=== PATIENT | female | born 1960 | race Caucasian/White ===

== ENCOUNTER 2019-02-07 12:04 | Emergency (ER) | payer MEDICAID, OTHER ==
[~2019-02-07] VITALS: Ht 149.9 cm; Wt 40.4 kg
[~2019-02-07 12:04] MED LIST: OMEP20EC4 PO
[2019-02-07 12:10] VITALS: BP 133/84
--- NOTE | 2019-02-07 12:12 | NUR ---
PT AMBULATED TO ER BED 08
--- NOTE | 2019-02-07 12:16 | NUR ---
58/F BIB SELF C/O LEFT LOWER DENTAL PAIN X 3 DAYS. DENIES FEVER/CHILLS. REQUESTING ABX RX. HX: DIABETES. PATIENT STATES PAIN OF 10/10 AT THIS TIME; PATIENT POSITIONED FOR COMFORT; HOB ELEVATED; BEDRAILS UP X1; BED DOWN. ER MD MADE AWARE OF PT STATUS.
--- NOTE | 2019-02-07 12:17 | NUR ---
Patient being evaluated by DR HORTA at bedside.
[2019-02-07] MEDS ORDERED: IBUPROFEN 400 MG TAB PO ONE (12:20)
[2019-02-07 12:33] VITALS: BP 110/72
--- NOTE | 2019-02-07 12:33 | NUR ---
Patient discharged with v/s stable. Written and verbal after care instructions given and explained. Patient alert, oriented and verbalized understanding of instructions. Ambulatory with steady gait. All questions addressed prior to discharge. ID band removed. Patient advised to follow up with PMD. Rx of CLINDAMYCIN & NAPROSYN given. Patient educated on indication of medication including possible reaction and side effects. Opportunity to ask questions provided and answered.
== END 2019-02-07 12:33 | disposition home or self-care (01) ==
LOC: MED 12:04
DX: K04.7 Periapical abscess without sinus (principal); E11.9 Type 2 diabetes mellitus without complications; K21.9 Gastro-esophageal reflux disease without esophagitis; Z88.0 Allergy status to penicillin; Z79.899 Other long term (current) drug therapy
CPT/HCPCS: 99283

== ENCOUNTER 2019-06-03 09:41 | Emergency (ER) | payer MEDICAID, OTHER ==
[~2019-06-03] VITALS: Ht 144.8 cm; Wt 32.7 kg
[~2019-06-03 09:41] MED LIST changes: +OMEP20EC11 PO; -OMEP20EC4 PO
[2019-06-03 09:50] VITALS: BP 112/80
--- NOTE | 2019-06-03 09:55 | NUR ---
Patient ambulated to bed 3
[2019-06-03] MEDS ORDERED: METF1000 PO (09:58)
[2019-06-03] MEDS ORDERED: GABA300C PO (09:58)
--- NOTE | 2019-06-03 10:00 | NUR ---
PPT C/O DIARRHEA FOR THE PAST 3-4 DAYS. PT DENIES ANY ABDOMINAL PAIN AND NAUSEA. PATIENT STATES PAIN OF 0/10 AT THIS TIME; VSS; PATIENT POSITIONED FOR COMFORT; HOB ELEVATED; BEDRAILS UP X1; BED DOWN. ER MD MADE AWARE OF PT STATUS.
[2019-06-03] MEDS ORDERED: LOPERAMIDE 2 MG CAP PO ONE (10:05)
[2019-06-03] MEDS ORDERED: NACL 0.9% 1,000 ML IV ONE (10:05)
[2019-06-03 10:31] LABS: BASOPHILS % (AUTO) 0.5 % (0.0-2.0); EOSINOPHILS # (AUTO) 0.1 K/uL (0-0.4); EOSINOPHILS % (AUTO) 0.7 % (0.0-4.0); HEMATOCRIT 36.8 % (36-48); HEMOGLOBIN 12.3 g/dL (12.0-16.0); LYMPHOCYTES # (AUTO) 2.3 K/uL (2.5-16.5); LYMPHOCYTES % (AUTO) 31.4 % (20.5-51.1); MEAN CORPUSCULAR HEMOGLOBIN 29 pg (27-31); MEAN CORPUSCULAR HGB CONC 33 g/dL (33-37); MEAN CORPUSCULAR VOLUME 87.7 fL (80-94); MONOCYTES # (AUTO) 0.6 K/uL (0.8-1.0); MONOCYTES % (AUTO) 8.7 % (1.7-9.3); NEUTROPHILS # (AUTO) 4.3 K/uL (1.8-7.7); NEUTROPHILS % (AUTO) 58.7 % (42.2-75.2); PLATELET COUNT (AUTO) 334 K/uL (140-450); RED CELL DISTRIBUTION WIDTH 12.7 % (11.6-13.7); WHITE BLOOD COUNT (AUTO) 7.3 K/uL (4.8-10.8)
[2019-06-03 10:37] LABS: ANION GAP 16.8 (8-16); CARBON DIOXIDE 28.4 mmol/L (21-32); CREATININE 0.8 mg/dL (0.6-1.3); POTASSIUM 3.2 mmol/L (3.5-5.1)
[2019-06-03] MEDS ORDERED: INSULIN REGULAR, HUMAN 100 UNIT/ML VIAL SUBQ ONE (10:40)
[2019-06-03] MEDS ORDERED: POTASSIUM CHLORIDE 10 MEQ TABER PO ONE (10:40)
[2019-06-03 10:42] LABS: ALBUMIN 2.7 g/dL (3.4-5.0); TOTAL BILIRUBIN 0.4 mg/dL (0.0-1.0)
[2019-06-03 11:30] VITALS: BP 131/79
--- NOTE | 2019-06-03 11:30 | NUR ---
Patient discharged with v/s stable. Written and verbal after care instructions given and explained. Patient alert, oriented and verbalized understanding of instructions. Ambulatory with steady gait. All questions addressed prior to discharge. ID band removed. Patient advised to follow up with PMD. Rx of Imodium A-D given. Patient educated on indication of medication including possible reaction and side effects. Opportunity to ask questions provided and answered.
== END 2019-06-03 11:30 | disposition home or self-care (01) ==
LOC: MED 09:41
DX: K52.9 Noninfective gastroenteritis and colitis, unspecified (principal); E87.6 Hypokalemia; E11.65 Type 2 diabetes mellitus with hyperglycemia; K21.9 Gastro-esophageal reflux disease without esophagitis; Z79.899 Other long term (current) drug therapy; Z79.84 Long term (current) use of oral hypoglycemic drugs; Z88.0 Allergy status to penicillin
CPT/HCPCS: 36415; 80053; 82948; 85025; 96360; 96372; 99283; J1815; J7030

== ENCOUNTER 2020-06-12 21:20 | Emergency (ER) | payer OTHER ==
[~2020-06-12] VITALS: Ht 149.9 cm; Wt 37.0 kg
[~2020-06-12 21:20] MED LIST changes: +GABA300C PO; -OMEP20EC11 PO
[2020-06-12 21:24] VITALS: BP 144/91
[2020-06-12] MEDS ORDERED: ONDANSETRON 4 MG ODT PO ONE (22:05)
[2020-06-12 23:41] VITALS: BP 124/68
== END 2020-06-12 23:43 | disposition home or self-care (01) ==
LOC: MED 21:20
DX: R11.2 Nausea with vomiting, unspecified (principal); T36.8X5A Adverse effect of other systemic antibiotics, initial encounter; E11.9 Type 2 diabetes mellitus without complications; Z98.890 Other specified postprocedural states; Y92.89 Other specified places as the place of occurrence of the external cause
CPT/HCPCS: 82948; 99283; Q0162

== ENCOUNTER 2021-03-30 00:22 | Observation (INO) | payer OTHER, SELFPAY ==
[~2021-03-30] VITALS: Ht 149.9 cm; Wt 40.4 kg
[~2021-03-30 00:22] MED LIST changes: +CALC667C3 PO; +FERR240T12 PO; -GABA300C PO; +MAGN100T13 PO; +POTA10TE30 PO
[2021-03-30 00:45] VITALS: BP 123/72
[2021-03-30] MEDS ORDERED: ONDANSETRON 4 MG/2 ML VIAL IVP ONE (00:50)
[2021-03-30 01:28] LABS: BASOPHILS % (AUTO) 0.7 % (0.0-2.0); EOSINOPHILS % (AUTO) 0.7 % (0.0-4.0); HEMATOCRIT 38.7 % (36-48); HEMOGLOBIN 12.2 g/dL (12.0-16.0); LYMPHOCYTES # (AUTO) 0.9 K/uL (2.5-16.5); LYMPHOCYTES % (AUTO) 17.7 % (20.5-51.1); MEAN CORPUSCULAR HEMOGLOBIN 30 pg (27-31); MEAN CORPUSCULAR HGB CONC 32 g/dL (33-37); MEAN CORPUSCULAR VOLUME 94.8 fL (80-94); MONOCYTES # (AUTO) 0.5 K/uL (0.8-1.0); MONOCYTES % (AUTO) 9.6 % (1.7-9.3); NEUTROPHILS # (AUTO) 3.5 K/uL (1.8-7.7); NEUTROPHILS % (AUTO) 71.3 % (42.2-75.2); PLATELET COUNT (AUTO) 156 K/uL (140-450); RED BLOOD CELL COUNT(AUTO) 4.08 MIL/uL (4.20-5.40); WHITE BLOOD COUNT (AUTO) 4.8 K/uL (4.8-10.8)
[2021-03-30 01:47] LABS: ALBUMIN 3.5 g/dL (3.4-5.0); CARBON DIOXIDE 16.6 mmol/L (21-32); MAGNESIUM 2.4 mg/dL (1.8-2.4); PHOSPHORUS 7.1 mg/dL (2.5-4.9); POTASSIUM 5.6 mmol/L (3.5-5.1); TOTAL BILIRUBIN 0.4 mg/dL (0.0-1.0)
[2021-03-30 01:49] LABS: CREATININE 5.1 mg/dL (0.6-1.3)
[2021-03-30] MEDS ORDERED: DEXTROSE 50% 50 ML SYR IVP ONE ×2 (02:59→03:00)
[2021-03-30 04:30] VITALS: BP 94/51
[2021-03-30] MEDS ORDERED: HYDROcodone/APAP 5/325 MG 1 TAB TAB PO PRN (07:00)
[2021-03-30] MEDS ORDERED: ACETAMINOPHEN 325 MG TAB PO PRN (07:00)
[2021-03-30] MEDS ORDERED: INSULIN LISPRO SLIDING SCALE 100 UNITS/ML VIAL SUBQ PRN (07:05)
[2021-03-30] MEDS ORDERED: DEXTROSE 50% 50 ML SYR IVP PRN (07:05)
[2021-03-30 08:00] VITALS: BP 97/49
[2021-03-30] MEDS: BLOOD GLUCOSE MONITORING 1 DEV DEV FS SCH ×4 (08:17→20:49)
[2021-03-30] MEDS: ONDANSETRON 4 MG/2 ML VIAL IVP PRN ×2 (08:43→15:10)
[2021-03-30 13:00] VITALS: BP 101/52
[2021-03-30 16:00] VITALS: BP 133/74
[2021-03-30 20:00] VITALS: BP 120/65
[2021-03-31] VITALS: BP 130/80
[2021-03-31 04:00] VITALS: BP 139/81
[2021-03-31] MEDS: BLOOD GLUCOSE MONITORING 1 DEV DEV FS SCH ×3 (06:43→17:19)
[2021-03-31 08:00] VITALS: BP 155/96
[2021-03-31] MEDS ORDERED: PANTOPRAZOLE 40 MG INJ VIAL IVP SCH (09:00)
[2021-03-31 12:00] VITALS: BP 154/90
[2021-03-31] MEDS ORDERED: ONDA4TAB PO (15:19)
[2021-03-31 15:26] VITALS: BP 133/74
[2021-03-31 16:00] VITALS: BP 133/74
== END 2021-03-31 18:50 | disposition home or self-care (01) ==
LOC: MED 00:22 → MTU 03:48
PROVIDERS: ADMIT Internal Medicine; ATTEND Internal Medicine
DX: E11.65 Type 2 diabetes mellitus with hyperglycemia (principal); E11.22 Type 2 diabetes mellitus with diabetic chronic kidney disease; I13.2 Hypertensive heart and chronic kidney disease with heart failure and with stage 5 chronic kidney disease, or end stage renal disease; N18.6 End stage renal disease; I50.9 Heart failure, unspecified; E87.2 Acidosis; E87.70 Fluid overload, unspecified; E87.5 Hyperkalemia; E83.39 Other disorders of phosphorus metabolism; D63.8 Anemia in other chronic diseases classified elsewhere; R11.2 Nausea with vomiting, unspecified; R19.7 Diarrhea, unspecified; Z79.899 Other long term (current) drug therapy; Z99.2 Dependence on renal dialysis
CPT/HCPCS: 36415; 71045; 80053; 82948; 83690; 83735; 84100; 85025; 87081; 96372; 96374; 96375; 96376; 99285; C9113; G0378; J1644; J1815; J2405; 93005; 99284

== ENCOUNTER 2021-10-04 11:32 | Emergency (ER) | payer OTHER, SELFPAY ==
[~2021-10-04] VITALS: Ht 149.9 cm; Wt 40.4 kg
[~2021-10-04 11:32] MED LIST changes: +ONDA4TAB PO; +POTA10TA70 PO; -POTA10TE30 PO
[2021-10-04 12:14] VITALS: BP 98/56
[2021-10-04] MEDS ORDERED: HYDROcodone/APAP 5/325 MG 1 TAB TAB PO ONE (12:45)
[2021-10-04] MEDS ORDERED: ACET-2619 PO (14:30)
[2021-10-04] MEDS ORDERED: IMO2 PO (14:30)
[2021-10-04] MEDS ORDERED: BENZ100C6 PO (14:30)
[2021-10-04 14:51] VITALS: BP 115/84
--- NOTE | 2021-10-04 14:52 | NUR ---
Patient discharged with v/s stable. Written and verbal after care instructions given FOR CONTUSION AND KNEE SPRAIN and explained. Patient alert, oriented and verbalized understanding of instructions. Ambulatory with steady gait. All questions addressed prior to discharge. ID band removed. Patient advised to follow up with PMD. Rx of LOPERAMIDE,TYNENOL, AND BENZONATATE given. Patient educated on indication of medication including possible reaction and side effects. Opportunity to ask questions provided and answered.
== END 2021-10-04 14:52 | disposition home or self-care (01) ==
LOC: MED 11:32
DX: S80.01XA Contusion of right knee, initial encounter (principal); I12.9 Hypertensive chronic kidney disease with stage 1 through stage 4 chronic kidney disease, or unspecified chronic kidney disease; E11.22 Type 2 diabetes mellitus with diabetic chronic kidney disease; N18.30 Chronic kidney disease, stage 3 unspecified; K21.9 Gastro-esophageal reflux disease without esophagitis; Z88.0 Allergy status to penicillin; W19.XXXA Unspecified fall, initial encounter; Y93.89 Activity, other specified; Y92.89 Other specified places as the place of occurrence of the external cause; Y99.8 Other external cause status
CPT/HCPCS: 73562; 93971; 99284; Q0092

== ENCOUNTER 2021-11-09 14:37 | Emergency (ER) | payer OTHER ==
[~2021-11-09] VITALS: Ht 149.9 cm; Wt 43.1 kg
[~2021-11-09 14:37] MED LIST changes: +ACET-2619 PO; +BENZ100C6 PO; +IMO2 PO
--- NOTE | 2021-11-09 15:05 | NUR ---
PT BIBA AND TAKEN TO BED 9
[2021-11-09 15:09] VITALS: BP 117/75
--- NOTE | 2021-11-09 15:26 | NUR ---
PATIENT BIBA C/O CONTINOUS DIARRHEA FOR THE PAST 2 DAYS. STATES SHE HAS GONE 5X TODAY AND STARTED GETTING CHILLS. THE LAST TIME WAS RIGHT BEFORE SHE ARRIVED. PMHX: HTN, DM, RENAL MEDS: UNKNOWN FOR HTN, DOES NOT TAKE DM MEDICATION BECAUSE ITS CONTROLLED. ALLERGIES: [facility] M/W/F
--- NOTE | 2021-11-09 15:39 | NUR ---
DR. TRAN AT BEDSIDE
--- NOTE | 2021-11-09 15:40 | NUR ---
61 Y/O FEMALE BIBA FROM HOME WITH C/O NON-PRODUCTIVE COUGH X 1 MONTH, DIARRHEA WITHOUT BLOOD IN STOOL, WEAKNESS X 3 DAYS, CHILLS X TODAY. COVID TESTED NEGATIVE X2 WEEKS AGO PER FAMILY. PER EMS PT'S BLOOD SUGAR 250. DIALYSIS M/W/F TO RIGHT UPPER CHEST CATHETER. PMH: DM, HTN , COVID 19(21) ALLERGIES: PCNS
--- NOTE | 2021-11-09 16:11 | NUR ---
BLOOD COLLECTED BY LAB
[2021-11-09 16:27] LABS: BASOPHILS # (AUTO) 0.1 K/uL (0.00-0.22); BASOPHILS % (AUTO) 0.5 % (0.0-2.0); EOSINOPHILS % (AUTO) 0.2 % (0.0-4.0); HEMATOCRIT 26.9 % (36-48); HEMOGLOBIN 8.8 g/dL (12.0-16.0); LYMPHOCYTES # (AUTO) 0.3 K/uL (2.5-16.5); LYMPHOCYTES % (AUTO) 2.8 % (20.5-51.1); MEAN CORPUSCULAR HEMOGLOBIN 30 pg (27-31); MEAN CORPUSCULAR HGB CONC 33 g/dL (33-37); MEAN CORPUSCULAR VOLUME 90.8 fL (80-94); MONOCYTES # (AUTO) 0.7 K/uL (0.8-1.0); MONOCYTES % (AUTO) 7.2 % (1.7-9.3); NEUTROPHILS # (AUTO) 9.1 K/uL (1.8-7.7); NEUTROPHILS % (AUTO) 89.3 % (42.2-75.2); PLATELET COUNT (AUTO) 199 K/uL (140-450); RED BLOOD CELL COUNT(AUTO) 2.96 MIL/uL (4.20-5.40); RED CELL DISTRIBUTION WIDTH 15.6 % (11.6-13.7); WHITE BLOOD COUNT (AUTO) 10.2 K/uL (4.8-10.8)
[2021-11-09 16:59] LABS: ALBUMIN 2.5 g/dL (3.4-5.0); ANION GAP 16.4 (8-16); POTASSIUM 4.4 mmol/L (3.5-5.1); TOTAL BILIRUBIN 0.3 mg/dL (0.0-1.0)
[2021-11-09 17:01] LABS: CREATININE 4.7 mg/dL (0.6-1.3)
--- NOTE | 2021-11-09 17:03 | NUR ---
CRITICAL LAB CREATININE REPORTED TO DR. TRAN
[2021-11-09] MEDS ORDERED: BISM262C53 PO (17:27)
[2021-11-09 17:45] VITALS: BP 134/68
--- NOTE | 2021-11-09 17:47 | NUR ---
Note caroline in EDM - 11/09/21 at 1848 by HAILY Patient discharged with v/s stable. Written and verbal after care instructions given for diarrhea and explained. Patient alert, oriented and verbalized understanding of instructions. Ambulatory with steady gait. All questions addressed prior to discharge. ID band removed. Patient advised to follow up with PMD. Rx of Bismuth subsalicylate given. Opportunity to ask questions provided and answered.
--- NOTE | 2021-11-09 17:47 | NUR ---
Patient discharged with v/s stable. Written and verbal after care instructions given and explained. Patient alert, oriented and verbalized understanding of instructions. Ambulatory with steady gait. All questions addressed prior to discharge. ID band removed. Patient advised to follow up with PMD. Rx of Bismuth subsalicylate given. Patient educated on indication of medication including possible reaction and side effects. Opportunity to ask questions provided and answered.
== END 2021-11-09 17:45 | disposition home or self-care (01) ==
LOC: MED 14:37
DX: E11.22 Type 2 diabetes mellitus with diabetic chronic kidney disease (principal); I12.0 Hypertensive chronic kidney disease with stage 5 chronic kidney disease or end stage renal disease; N18.6 End stage renal disease; R19.7 Diarrhea, unspecified; D64.9 Anemia, unspecified; K21.9 Gastro-esophageal reflux disease without esophagitis; Z99.2 Dependence on renal dialysis; Z79.899 Other long term (current) drug therapy; Z88.0 Allergy status to penicillin
CPT/HCPCS: 36415; 80053; 83690; 85025; 99283

== ENCOUNTER 2022-02-19 09:18 | Emergency (ER) | payer OTHER ==
[~2022-02-19] VITALS: Ht 149.9 cm; Wt 40.8 kg
[~2022-02-19 09:18] MED LIST changes: +BISM262C53 PO
[2022-02-19 09:23] VITALS: BP 137/70
--- NOTE | 2022-02-19 09:29 | NUR ---
ALE OCHOA VIA GURNEY TO BED 09.
--- NOTE | 2022-02-19 09:49 | NUR ---
PT TAKEN TO CT VIA [facility].
--- NOTE | 2022-02-19 09:57 | NUR ---
PT RETURNED FROM CT
--- NOTE | 2022-02-19 10:00 | NUR ---
LAB BEDSIDE FOR BLOOD DRAW
[2022-02-19 10:10] LABS: BASOPHILS % (AUTO) 0.3 % (0.0-2.0); EOSINOPHILS % (AUTO) 0.1 % (0.0-4.0); HEMATOCRIT 35.8 % (36-48); HEMOGLOBIN 11.4 g/dL (12.0-16.0); LYMPHOCYTES # (AUTO) 0.7 K/uL (2.5-16.5); LYMPHOCYTES % (AUTO) 10.3 % (20.5-51.1); MEAN CORPUSCULAR HEMOGLOBIN 29 pg (27-31); MEAN CORPUSCULAR HGB CONC 32 g/dL (33-37); MEAN CORPUSCULAR VOLUME 89.3 fL (80-94); MONOCYTES # (AUTO) 0.6 K/uL (0.8-1.0); MONOCYTES % (AUTO) 8.7 % (1.7-9.3); NEUTROPHILS # (AUTO) 5.8 K/uL (1.8-7.7); NEUTROPHILS % (AUTO) 80.6 % (42.2-75.2); PLATELET COUNT (AUTO) 177 K/uL (140-450); RED CELL DISTRIBUTION WIDTH 14.8 % (11.6-13.7); WHITE BLOOD COUNT (AUTO) 7.2 K/uL (4.8-10.8)
[2022-02-19 10:48] LABS: ALBUMIN 3.1 g/dL (3.4-5.0); ANION GAP 20.7 (8-16); CARBON DIOXIDE 22.3 mmol/L (21-32); TOTAL BILIRUBIN 0.9 mg/dL (0.0-1.0)
[2022-02-19 10:50] LABS: CREATININE 4.3 mg/dL (0.6-1.3)
[2022-02-19] MEDS ORDERED: ACETAMINOPHEN EXTRA STRENGTH 500 MG TAB PO ONE (11:20)
--- NOTE | 2022-02-19 11:32 | NUR ---
61/F BIBA FROM HOME. PER EMS PATIENTS NEIGHBOR CALLED 911 STATING PATIENT WAS EATING HER BREAKFAST OUTSIDE HER HOME AND FELL OFF THE CURB HITTING HER HEAD. PATIENT REPORTS 4/10 HEAD AND LEFT SHOULDER PAIN. REPORTS POSSIBLE SYNCOPAL EPISODE BUT STATES SHE IS UNSURE. PATIENT DENIES DIZZINESS, VISION CHANGES, N/V/D.
--- NOTE | 2022-02-19 11:41 | NUR ---
Patient discharged with v/s stable. Written and verbal after care instructions given and explained. Patient verbalized understanding. Ambulatory to uber transport back home. All questions addressed prior to discharge. Advised to follow up with PMD. food given prior to discharge
[2022-02-19 11:42] VITALS: BP 114/89
--- NOTE | 2022-02-19 12:00 | NUR ---
REQUESTED [facility] FOR PT THROUGH HOUSE SUP, PT ESCORTED OUT TO [facility] AT THIS TIME.
== END 2022-02-19 11:41 | disposition home or self-care (01) ==
LOC: MED 09:18
DX: S09.90XA Unspecified injury of head, initial encounter (principal); R55 Syncope and collapse; R11.0 Nausea; R51.9 Headache, unspecified; E11.22 Type 2 diabetes mellitus with diabetic chronic kidney disease; I12.9 Hypertensive chronic kidney disease with stage 1 through stage 4 chronic kidney disease, or unspecified chronic kidney disease; N18.30 Chronic kidney disease, stage 3 unspecified; K21.9 Gastro-esophageal reflux disease without esophagitis; Z88.0 Allergy status to penicillin; Z79.899 Other long term (current) drug therapy; Z99.2 Dependence on renal dialysis; Z90.710 Acquired absence of both cervix and uterus; Z90.49 Acquired absence of other specified parts of digestive tract; W19.XXXA Unspecified fall, initial encounter; Y93.89 Activity, other specified; Y92.89 Other specified places as the place of occurrence of the external cause; Y99.8 Other external cause status
CPT/HCPCS: 36415; 70450; 80053; 85025; 99284

== ENCOUNTER 2023-08-03 15:31 | Inpatient (IN) | payer OTHER ==
[~2023-08-03] VITALS: Ht 149.9 cm; Wt 40.8 kg
[2023-08-03 15:33] VITALS: BP 163/82; PULSE 72; RESP 18; TEMP 98.5; O2SAT 97
[2023-08-03] MEDS ORDERED: LIDOCAINE MPF 1% 10 MG/ML VIAL INJ ONE (15:50)
[2023-08-03] MEDS ORDERED: CLINDAMYCIN 900MG/D5W PM 50 ML IV ONE (18:20)
[2023-08-03 18:38] LABS: BASOPHILS # (AUTO) 0.1 K/uL (0.00-0.22); BASOPHILS % (AUTO) 1.2 % (0.0-2.0); EOSINOPHILS # (AUTO) 0.1 K/uL (0-0.4); EOSINOPHILS % (AUTO) 1.5 % (0.0-4.0); HEMATOCRIT 27.4 % (36-48); HEMOGLOBIN 9.1 g/dL (12.0-16.0); LYMPHOCYTES # (AUTO) 1.4 K/uL (2.5-16.5); LYMPHOCYTES % (AUTO) 19.9 % (20.5-51.1); MEAN CORPUSCULAR HEMOGLOBIN 31 pg (27-31); MEAN CORPUSCULAR HGB CONC 33 g/dL (33-37); MEAN CORPUSCULAR VOLUME 92.2 fL (80-94); MONOCYTES # (AUTO) 0.9 K/uL (0.8-1.0); MONOCYTES % (AUTO) 13.3 % (1.7-9.3); NEUTROPHILS # (AUTO) 4.5 K/uL (1.8-7.7); NEUTROPHILS % (AUTO) 64.1 % (42.2-75.2); PLATELET COUNT (AUTO) 174 K/uL (140-450); RED BLOOD CELL COUNT(AUTO) 2.97 MIL/uL (4.20-5.40); RED CELL DISTRIBUTION WIDTH 14.6 % (11.6-13.7); WHITE BLOOD COUNT (AUTO) 7.1 K/uL (4.8-10.8)
[2023-08-03 18:58] LABS: ALBUMIN 2.7 g/dL (3.4-5.0); ANION GAP 11.9 (8-16); CARBON DIOXIDE 30.3 mmol/L (21-32); POTASSIUM 5.2 mmol/L (3.5-5.1); TOTAL BILIRUBIN 0.5 mg/dL (0.0-1.0); TOTAL PROTEIN, SERUM 7.2 g/dL (6.4-8.2)
[2023-08-03 18:59] LABS: CREATININE 4.2 mg/dL (0.6-1.3)
[2023-08-03 19:03] LABS: LACTIC ACID 1.9 mmol/L (0.4-2.0)
[2023-08-04 08:45] VITALS: PULSE 66
[2023-08-04] MEDS ORDERED: BISMUTH SUBSALICYLATE PO PRN (10:00)
[2023-08-04] MEDS ORDERED: HYDROcodone/APAP 5/325 MG 1 TAB TAB PO PRN (10:00)
[2023-08-04] MEDS ORDERED: BENZONATATE 100 MG CAPLF PO PRN (10:00)
[2023-08-04] MEDS ORDERED: LORazepam 2 MG/ML VIAL IVP PRN (10:00)
[2023-08-04] MEDS ORDERED: LOPERAMIDE 2 MG CAP PO PRN (10:00)
[2023-08-04] MEDS ORDERED: ACETAMINOPHEN 325 MG TAB PO PRN (10:00)
[2023-08-04] MEDS ORDERED: ONDANSETRON 4 MG/2 ML VIAL IVP PRN (10:00)
[2023-08-04 11:08] LABS: BASOPHILS % (AUTO) 0.9 % (0.0-2.0); EOSINOPHILS # (AUTO) 0.1 K/uL (0-0.4); EOSINOPHILS % (AUTO) 2.3 % (0.0-4.0); HEMATOCRIT 27.9 % (36-48); HEMOGLOBIN 9.3 g/dL (12.0-16.0); LYMPHOCYTES # (AUTO) 1.3 K/uL (2.5-16.5); LYMPHOCYTES % (AUTO) 23.1 % (20.5-51.1); MEAN CORPUSCULAR HEMOGLOBIN 31 pg (27-31); MEAN CORPUSCULAR HGB CONC 33 g/dL (33-37); MEAN CORPUSCULAR VOLUME 92.8 fL (80-94); MONOCYTES # (AUTO) 0.8 K/uL (0.8-1.0); MONOCYTES % (AUTO) 15.3 % (1.7-9.3); NEUTROPHILS # (AUTO) 3.2 K/uL (1.8-7.7); NEUTROPHILS % (AUTO) 58.4 % (42.2-75.2); PLATELET COUNT (AUTO) 162 K/uL (140-450); RED CELL DISTRIBUTION WIDTH 14.3 % (11.6-13.7); WHITE BLOOD COUNT (AUTO) 5.5 K/uL (4.8-10.8)
[2023-08-04 11:25] LABS: ALBUMIN 2.7 g/dL (3.4-5.0); ANION GAP 15.1 (8-16); CALCIUM 7.6 mg/dL (8.5-10.1); CARBON DIOXIDE 26.7 mmol/L (21-32); POTASSIUM 4.8 mmol/L (3.5-5.1); TOTAL BILIRUBIN 0.6 mg/dL (0.0-1.0); TOTAL PROTEIN, SERUM 7.2 g/dL (6.4-8.2)
[2023-08-04 11:27] LABS: CREATININE 4.7 mg/dL (0.6-1.3)
[2023-08-04 12:00] VITALS: PULSE 64
[2023-08-04] MEDS: CALCIUM ACETATE 667 MG TAB PO SCH ×2 (13:03→16:54)
[2023-08-04 14:20] VITALS: PULSE 65; RESP 20; O2SAT 99
[2023-08-04 16:00] VITALS: BP 162/84; PULSE 70; PULSE 72; RESP 20; TEMP 98; O2SAT 72
[2023-08-04] MEDS ORDERED: POTASSIUM CHLORIDE 10 MEQ TABER PO PRN (19:35)
[2023-08-04] MEDS ORDERED: MAGNESIUM OXIDE 400 MG TAB PO PRN (19:35)
[2023-08-04 20:00] VITALS: BP 172/88; PULSE 75; PULSE 80; RESP 18; TEMP 99.3; O2SAT 96
[2023-08-05] VITALS: BP 157/76; PULSE 71; RESP 17; TEMP 98; O2SAT 98
[2023-08-05 04:00] VITALS: BP 156/74; PULSE 72; RESP 18; TEMP 98.3; O2SAT 100
[2023-08-05 06:50] LABS: BASOPHILS % (AUTO) 0.5 % (0.0-2.0); EOSINOPHILS # (AUTO) 0.1 K/uL (0-0.4); HEMATOCRIT 27.3 % (36-48); LYMPHOCYTES # (AUTO) 1.3 K/uL (2.5-16.5); LYMPHOCYTES % (AUTO) 21.4 % (20.5-51.1); MEAN CORPUSCULAR HEMOGLOBIN 31 pg (27-31); MEAN CORPUSCULAR HGB CONC 33 g/dL (33-37); MEAN CORPUSCULAR VOLUME 92.9 fL (80-94); MONOCYTES # (AUTO) 0.9 K/uL (0.8-1.0); MONOCYTES % (AUTO) 14.4 % (1.7-9.3); NEUTROPHILS # (AUTO) 3.7 K/uL (1.8-7.7); NEUTROPHILS % (AUTO) 61.7 % (42.2-75.2); PLATELET COUNT (AUTO) 145 K/uL (140-450); RED BLOOD CELL COUNT(AUTO) 2.94 MIL/uL (4.20-5.40); RED CELL DISTRIBUTION WIDTH 14.5 % (11.6-13.7); WHITE BLOOD COUNT (AUTO) 5.9 K/uL (4.8-10.8)
[2023-08-05 07:50] LABS: MAGNESIUM 2.2 mg/dL (1.8-2.4); PHOSPHORUS 6.2 mg/dL (2.5-4.9)
[2023-08-05 08:00] VITALS: BP 166/79; PULSE 65; PULSE 73; RESP 18; TEMP 97.5; O2SAT 100; O2SAT 99
[2023-08-05] MEDS ORDERED: FERROUS GLUCONATE 324 MG TAB PO SCH (08:00)
[2023-08-05] MEDS: CALCIUM ACETATE 667 MG TAB PO SCH ×2 (08:13→12:29)
[2023-08-05 08:26] LABS: ANION GAP 15.3 (8-16); CALCIUM 8.1 mg/dL (8.5-10.1); CARBON DIOXIDE 24.3 mmol/L (21-32); CREATININE 3.7 mg/dL (0.6-1.3); POTASSIUM 4.6 mmol/L (3.5-5.1)
[2023-08-05] MEDS ORDERED: POTASSIUM CHLORIDE 10 MEQ TABER PO SCH (09:00)
[2023-08-05] MEDS ORDERED: MAGNESIUM AMINO ACID CHELATE PO SCH (09:00)
[2023-08-05] MEDS ORDERED: FERROUS GLUCONATE PO SCH (09:00)
[2023-08-05] MEDS ORDERED: hydrALAZINE 10 MG TAB PO SCH (10:20)
[2023-08-05 12:00] VITALS: BP 160/76; PULSE 74; RESP 18; TEMP 97.4; O2SAT 97
[2023-08-05] MEDS ORDERED: hydrALAZINE 25 MG TAB PO SCH (13:00)
[2023-08-05 16:00] VITALS: BP 157/79; PULSE 69; RESP 18; TEMP 97.6; O2SAT 97
[2023-08-05] MEDS ORDERED: HYDR-4420 PO (23:03)
== END 2023-08-05 18:25 | disposition home or self-care (01) | DRG 604 ==
LOC: MED 15:31 → MTU 22:25
PROVIDERS: ADMIT Preventive Medicine Preventive Medicine/Occupational Environmental Medicine; ATTEND Preventive Medicine Preventive Medicine/Occupational Environmental Medicine
PROC: 5A1D70Z Performance of Urinary Filtration, Intermittent, Less than 6 Hours Per Day (ICD-10-PCS; principal; 2023-07-31)
DX: S01.01XA Laceration without foreign body of scalp, initial encounter (principal); N18.6 End stage renal disease; I12.0 Hypertensive chronic kidney disease with stage 5 chronic kidney disease or end stage renal disease; N17.9 Acute kidney failure, unspecified; S09.90XA Unspecified injury of head, initial encounter; D63.1 Anemia in chronic kidney disease; E11.65 Type 2 diabetes mellitus with hyperglycemia; E88.09 Other disorders of plasma-protein metabolism, not elsewhere classified; K21.9 Gastro-esophageal reflux disease without esophagitis; W22.09XA Striking against other stationary object, initial encounter; E11.22 Type 2 diabetes mellitus with diabetic chronic kidney disease; E83.39 Other disorders of phosphorus metabolism; E83.51 Hypocalcemia; Z99.2 Dependence on renal dialysis; Y93.89 Activity, other specified; Y92.89 Other specified places as the place of occurrence of the external cause; Y99.8 Other external cause status
CPT/HCPCS: 36415; 70450; 71045; 72125; 72170; 80048; 80053; 83605; 83735; 84100; 85025; 87040; 87081; 93005; 96365; 97110; 97116; 97530; 99285

== ENCOUNTER 2023-12-18 20:25 | Observation (INO) | payer OTHER ==
[~2023-12-18] VITALS: Ht 142.2 cm; Wt 40.4 kg
[~2023-12-18 20:25] MED LIST changes: +HYDR-4420 PO
[2023-12-18 20:31] VITALS: BP 112/80; PULSE 69; RESP 22; TEMP 97.3; O2SAT 100
[2023-12-18 21:04] LABS: BASOPHILS % (AUTO) 0.7 % (0.0-2.0); EOSINOPHILS # (AUTO) 0.1 K/uL (0-0.4); EOSINOPHILS % (AUTO) 1.5 % (0.0-4.0); HEMATOCRIT 35.7 % (36-48); HEMOGLOBIN 11.9 g/dL (12.0-16.0); LYMPHOCYTES # (AUTO) 1.3 K/uL (2.5-16.5); LYMPHOCYTES % (AUTO) 23.6 % (20.5-51.1); MEAN CORPUSCULAR HEMOGLOBIN 30 pg (27-31); MEAN CORPUSCULAR HGB CONC 33 g/dL (33-37); MEAN CORPUSCULAR VOLUME 90.5 fL (80-94); MONOCYTES # (AUTO) 0.8 K/uL (0.8-1.0); MONOCYTES % (AUTO) 15.1 % (1.7-9.3); NEUTROPHILS # (AUTO) 3.3 K/uL (1.8-7.7); NEUTROPHILS % (AUTO) 59.1 % (42.2-75.2); PLATELET COUNT (AUTO) 176 K/uL (140-450); RED BLOOD CELL COUNT(AUTO) 3.95 MIL/uL (4.20-5.40); RED CELL DISTRIBUTION WIDTH 16.1 % (11.6-13.7); WHITE BLOOD COUNT (AUTO) 5.6 K/uL (4.8-10.8)
[2023-12-18 21:18] LABS: INR 1.11 (0.8-1.2); PARTIAL THROMBOPLASTIN TIME 27.9 secs (22-35.6); PROTHROMBIN TIME 11.5 secs (10.8-13.4)
[2023-12-18 21:24] LABS: ANION GAP 18.2 (8-16); CALCIUM 8.4 mg/dL (8.5-10.1); POTASSIUM 5.2 mmol/L (3.5-5.1)
[2023-12-18] MEDS: LORazepam 2 MG/ML VIAL IVP ONE ×2 (21:24→22:16)
[2023-12-18 21:25] LABS: CREATININE 4.6 mg/dL (0.6-1.3)
[2023-12-18] MEDS ORDERED: CARV3.122 PO (22:10)
[2023-12-18] MEDS ORDERED: ATA25 PO (22:10)
[2023-12-18] MEDS ORDERED: ATRO1TAB PO (22:10)
[2023-12-18] MEDS ORDERED: SEVE800T6 PO (22:10)
[2023-12-18 22:23] LABS: FLU A ANTIGEN negative (NEGATIVE); FLU B ANTIGEN negative (NEGATIVE)
[2023-12-18] MEDS: OLANZapine 5 MG ODT SL ONE (22:40)
[2023-12-18] MEDS: ASPIRIN 81 MG TAB.CHEW PO ONE (22:40)
[2023-12-18] MEDS ORDERED: hydrALAZINE 20 MG/ML VIAL IVP PRN (23:35)
[2023-12-18] MEDS ORDERED: ONDANSETRON 4 MG/2 ML VIAL IVP PRN (23:35)
[2023-12-18] MEDS ORDERED: ACETAMINOPHEN 325 MG TAB PO PRN (23:35)
[2023-12-18] MEDS ORDERED: ZOLPIDEM 5 MG TAB PO PRN (23:35)
[2023-12-18] MEDS ORDERED: INSULIN LISPRO SLIDING SCALE 100 UNITS/ML VIAL SUBQ PRN (23:45)
[2023-12-18] MEDS ORDERED: HYDROXYZINE HYDROCHLORIDE 25 MG TAB PO SCH (23:45)
[2023-12-19] MEDS: SODIUM ZIRCONIUM CYCLOSILICATE 10 GM POWD.PACK PO ONE ×2 (00:32→13:36)
[2023-12-19] MEDS: LORazepam 1 MG TAB PO PRN (03:49)
[2023-12-19 06:46] LABS: BASOPHILS % (AUTO) 0.6 % (0.0-2.0); EOSINOPHILS # (AUTO) 0.1 K/uL (0-0.4); EOSINOPHILS % (AUTO) 1.7 % (0.0-4.0); HEMOGLOBIN 11.1 g/dL (12.0-16.0); LYMPHOCYTES # (AUTO) 1.4 K/uL (2.5-16.5); LYMPHOCYTES % (AUTO) 22.9 % (20.5-51.1); MEAN CORPUSCULAR HEMOGLOBIN 30 pg (27-31); MEAN CORPUSCULAR HGB CONC 34 g/dL (33-37); MEAN CORPUSCULAR VOLUME 90.1 fL (80-94); MONOCYTES # (AUTO) 0.9 K/uL (0.8-1.0); MONOCYTES % (AUTO) 14.7 % (1.7-9.3); NEUTROPHILS # (AUTO) 3.7 K/uL (1.8-7.7); NEUTROPHILS % (AUTO) 60.1 % (42.2-75.2); PLATELET COUNT (AUTO) 167 K/uL (140-450); RED BLOOD CELL COUNT(AUTO) 3.67 MIL/uL (4.20-5.40); RED CELL DISTRIBUTION WIDTH 16.4 % (11.6-13.7); WHITE BLOOD COUNT (AUTO) 6.1 K/uL (4.8-10.8)
[2023-12-19 07:21] LABS: ALBUMIN 2.7 g/dL (3.4-5.0); ANION GAP 19.6 (8-16); CALCIUM 8.1 mg/dL (8.5-10.1); CARBON DIOXIDE 22.2 mmol/L (21-32); POTASSIUM 5.8 mmol/L (3.5-5.1); TOTAL BILIRUBIN 0.4 mg/dL (0.0-1.0); TOTAL PROTEIN, SERUM 7.3 g/dL (6.4-8.2)
[2023-12-19 07:26] LABS: CREATININE 4.8 mg/dL (0.6-1.3)
[2023-12-19] MEDS: BLOOD GLUCOSE MONITORING 1 DEV DEV FS SCH (07:30)
[2023-12-19 08:20] VITALS: O2SAT 99
[2023-12-19] MEDS: DOCUSATE SODIUM 100 MG GELCAP PO SCH (09:00)
[2023-12-19 10:00] VITALS: BP 152/75; PULSE 75; RESP 19; TEMP 98.1; O2SAT 96
[2023-12-19] MEDS: hydrALAZINE 25 MG TAB PO SCH (10:12)
[2023-12-19] MEDS: PANTOPRAZOLE 40 MG INJ VIAL IVP SCH (10:13)
[2023-12-19] MEDS: SEVELAMER CARBONATE 800 MG TAB PO SCH (10:13)
[2023-12-19] MEDS: carvediloL 3.125 MG TAB PO SCH (10:13)
[2023-12-19] MEDS ORDERED: HYDROXYZINE HYDROCHLORIDE 25 MG TAB PO PRN (12:00)
[2023-12-19] MEDS: CALCIUM GLUCONATE 10% 1,000 MG in NACL 0.9% 50 ML IV ONE (12:05)
[2023-12-19] MEDS: INSULIN LISPRO 100 UNITS/ML VIAL SUBQ ONE (13:36)
[2023-12-19] MEDS: DEXTROSE 50% 50 ML SYR IVP ONE (13:36)
[2023-12-19] MEDS: SERTRALINE 50 MG TAB PO SCH (13:37)
[2023-12-19 16:00] VITALS: BP 146/66; PULSE 67; PULSE 68; RESP 18; TEMP 98.5; O2SAT 98
[2023-12-19 16:38] LABS: ANION GAP 21.8 (8-16); CARBON DIOXIDE 19.2 mmol/L (21-32)
[2023-12-19 16:53] LABS: CREATININE 5.4 mg/dL (0.6-1.3)
[2023-12-19] MEDS: SODIUM POLYSTYRENE 15 GM/60 ML UDBTL PO SCH (17:00)
[2023-12-19] MEDS: CALCIUM GLUC 1 GM/50 mL NS BAG 50 ML IV SCH (17:00)
[2023-12-19] MEDS: SODIUM ZIRCONIUM CYCLOSILICATE 10 GM POWD.PACK ONE (17:22)
[2023-12-19] MEDS: DEXTROSE 50% 50 ML SYR IVP PRN (17:37)
[2023-12-19 20:00] VITALS: BP 119/53; PULSE 60; PULSE 61; PULSE 67; RESP 15; TEMP 98.9; O2SAT 97
[2023-12-20] VITALS (8 sets, daily range): BP systolic 118–146; BP diastolic 53–75; PULSE 58–75; RESP 14–18; TEMP 97–99; O2SAT 96–99
[2023-12-20 07:04] LABS: BASOPHILS % (AUTO) 0.3 % (0.0-2.0); EOSINOPHILS # (AUTO) 0.1 K/uL (0-0.4); EOSINOPHILS % (AUTO) 1.6 % (0.0-4.0); HEMATOCRIT 33.5 % (36-48); HEMOGLOBIN 11.1 g/dL (12.0-16.0); LYMPHOCYTES # (AUTO) 1.1 K/uL (2.5-16.5); LYMPHOCYTES % (AUTO) 22.4 % (20.5-51.1); MEAN CORPUSCULAR HEMOGLOBIN 30 pg (27-31); MEAN CORPUSCULAR HGB CONC 33 g/dL (33-37); MONOCYTES # (AUTO) 0.5 K/uL (0.8-1.0); MONOCYTES % (AUTO) 9.6 % (1.7-9.3); NEUTROPHILS # (AUTO) 3.4 K/uL (1.8-7.7); NEUTROPHILS % (AUTO) 66.1 % (42.2-75.2); PLATELET COUNT (AUTO) 178 K/uL (140-450); RED BLOOD CELL COUNT(AUTO) 3.72 MIL/uL (4.20-5.40); RED CELL DISTRIBUTION WIDTH 15.7 % (11.6-13.7); WHITE BLOOD COUNT (AUTO) 5.1 K/uL (4.8-10.8)
[2023-12-20 07:06] LABS: ALBUMIN 2.5 g/dL (3.4-5.0); ANION GAP 21.1 (8-16); CALCIUM 7.9 mg/dL (8.5-10.1); CARBON DIOXIDE 19.4 mmol/L (21-32); POTASSIUM 5.5 mmol/L (3.5-5.1); TOTAL BILIRUBIN 0.4 mg/dL (0.0-1.0); TOTAL PROTEIN, SERUM 6.9 g/dL (6.4-8.2)
[2023-12-20] MEDS ORDERED: SERT-515 PO (11:25)
== END 2023-12-20 15:40 | disposition home or self-care (01) ==
LOC: MED 20:25 → MTU 22:26
PROVIDERS: ADMIT Student in an Organized Health Care Education/Training Program; ATTEND Student in an Organized Health Care Education/Training Program
DX: I49.9 Cardiac arrhythmia, unspecified (principal); Z20.822 Contact with and (suspected) exposure to COVID-19; R00.2 Palpitations; I12.0 Hypertensive chronic kidney disease with stage 5 chronic kidney disease or end stage renal disease; E11.22 Type 2 diabetes mellitus with diabetic chronic kidney disease; N18.6 End stage renal disease; F41.9 Anxiety disorder, unspecified; E87.1 Hypo-osmolality and hyponatremia; E87.5 Hyperkalemia; E43 Unspecified severe protein-calorie malnutrition; R11.2 Nausea with vomiting, unspecified; K21.9 Gastro-esophageal reflux disease without esophagitis; Z99.2 Dependence on renal dialysis; Z90.49 Acquired absence of other specified parts of digestive tract; Z90.710 Acquired absence of both cervix and uterus; Z88.0 Allergy status to penicillin; Z68.20 Body mass index [BMI] 20.0-20.9, adult
CPT/HCPCS: 36415; 71045; 80048; 80053; 82948; 83036; 84484; 85025; 85610; 85730; 87426; 87804; 93005; 96365; 96375; 96376; 97116; 97163; 99285; C9113; G0378; J0610; J1815; J2060; Q0092

== ENCOUNTER 2024-01-15 08:32 | Inpatient (IN) | payer OTHER ==
[~2024-01-15] VITALS: Ht 142.2 cm; Wt 40.8 kg
[~2024-01-15 08:32] MED LIST changes: -ACET-2619 PO; +ATA25 PO; +ATRO1TAB PO; -BENZ100C6 PO; -BISM262C53 PO; -CALC667C3 PO; +CARV3.122 PO; -FERR240T12 PO; -HYDR-4420 PO; +HYDR-5856 PO; -IMO2 PO; -MAGN100T13 PO; -ONDA4TAB PO; -POTA10TA70 PO; +SERT-515 PO; +SEVE800T6 PO
[2024-01-15 08:41] VITALS: BP 167/88; PULSE 64; RESP 15; TEMP 98.3; O2SAT 97
[2024-01-15 09:30] LABS: BASOPHILS % (AUTO) 0.6 % (0.0-2.0); EOSINOPHILS # (AUTO) 0.1 K/uL (0-0.4); EOSINOPHILS % (AUTO) 1.3 % (0.0-4.0); HEMATOCRIT 42.4 % (36-48); LYMPHOCYTES # (AUTO) 1.2 K/uL (2.5-16.5); LYMPHOCYTES % (AUTO) 24.7 % (20.5-51.1); MEAN CORPUSCULAR HEMOGLOBIN 30 pg (27-31); MEAN CORPUSCULAR HGB CONC 33 g/dL (33-37); MEAN CORPUSCULAR VOLUME 90.5 fL (80-94); MONOCYTES # (AUTO) 0.5 K/uL (0.8-1.0); MONOCYTES % (AUTO) 10.7 % (1.7-9.3); NEUTROPHILS % (AUTO) 62.7 % (42.2-75.2); PLATELET COUNT (AUTO) 148 K/uL (140-450); RED BLOOD CELL COUNT(AUTO) 4.69 MIL/uL (4.20-5.40); RED CELL DISTRIBUTION WIDTH 16.4 % (11.6-13.7); WHITE BLOOD COUNT (AUTO) 4.7 K/uL (4.8-10.8)
[2024-01-15 09:40] LABS: ANION GAP 17.4 (8-16); CALCIUM 10.1 mg/dL (8.5-10.1); CARBON DIOXIDE 26.9 mmol/L (21-32); POTASSIUM 4.3 mmol/L (3.5-5.1)
[2024-01-15 09:47] LABS: CREATININE 4.1 mg/dL (0.6-1.3)
[2024-01-15 09:51] LABS: MAGNESIUM 2.3 mg/dL (1.8-2.4); PHOSPHORUS 6.8 mg/dL (2.5-4.9)
[2024-01-15] MEDS ORDERED: LOPE2TAB52 PO (10:45)
[2024-01-15] MEDS ORDERED: HYDR-1095 (10:48)
[2024-01-15] MEDS ORDERED: SERT-514 PO (10:48)
[2024-01-15] MEDS ORDERED: SEVE800T6 (10:48)
[2024-01-15] MEDS ORDERED: ONDANSETRON 4 MG/2 ML VIAL IVP PRN (10:50)
[2024-01-15] MEDS: NACL 0.9% 1,000 ML IV SCH (11:15)
[2024-01-15 16:02] VITALS: BP 157/77; PULSE 75; RESP 18; TEMP 97; O2SAT 98
[2024-01-15 16:04] VITALS: PULSE 75; RESP 18; O2SAT 98
[2024-01-15 20:00] VITALS: PULSE 77; RESP 18; O2SAT 98
[2024-01-15 21:38] VITALS: BP 160/70; PULSE 76; PULSE 77; RESP 18; TEMP 97.6; O2SAT 98
[2024-01-16] VITALS: BP 172/80; PULSE 73; PULSE 76; RESP 16; TEMP 98; O2SAT 97
[2024-01-16] MEDS: hydrALAZINE 20 MG/ML VIAL IVP PRN (03:52)
[2024-01-16 04:00] VITALS: BP 174/72; PULSE 74; PULSE 75; RESP 18; TEMP 98.2; O2SAT 98
[2024-01-16] MEDS: LORazepam 2 MG/ML VIAL IVP ONE (06:02)
[2024-01-16 07:02] LABS: BASOPHILS % (AUTO) 0.3 % (0.0-2.0); EOSINOPHILS # (AUTO) 0.1 K/uL (0-0.4); HEMOGLOBIN 12.7 g/dL (12.0-16.0); LYMPHOCYTES # (AUTO) 1.7 K/uL (2.5-16.5); LYMPHOCYTES % (AUTO) 24.8 % (20.5-51.1); MEAN CORPUSCULAR HEMOGLOBIN 30 pg (27-31); MEAN CORPUSCULAR HGB CONC 33 g/dL (33-37); MEAN CORPUSCULAR VOLUME 90.5 fL (80-94); MONOCYTES # (AUTO) 0.9 K/uL (0.8-1.0); MONOCYTES % (AUTO) 13.5 % (1.7-9.3); NEUTROPHILS % (AUTO) 60.4 % (42.2-75.2); PLATELET COUNT (AUTO) 149 K/uL (140-450); RED CELL DISTRIBUTION WIDTH 16.1 % (11.6-13.7); WHITE BLOOD COUNT (AUTO) 6.7 K/uL (4.8-10.8)
[2024-01-16 07:17] LABS: CALCIUM 9.6 mg/dL (8.5-10.1); CARBON DIOXIDE 24.1 mmol/L (21-32); POTASSIUM 5.1 mmol/L (3.5-5.1)
[2024-01-16 07:19] LABS: CREATININE 5.3 mg/dL (0.6-1.3)
[2024-01-16 08:00] VITALS: BP 168/77; PULSE 66; PULSE 74; RESP 18; TEMP 98.3; O2SAT 98
[2024-01-16] MEDS: ASPIRIN 81 MG TAB.CHEW PO SCH (08:55)
[2024-01-16] MEDS ORDERED: DEXTROSE 50% 50 ML SYR IVP PRN (10:05)
[2024-01-16] MEDS: BLOOD GLUCOSE MONITORING 1 DEV DEV FS SCH (11:46)
[2024-01-16] MEDS: INSULIN LISPRO SLIDING SCALE 100 UNITS/ML VIAL SUBQ PRN (11:49)
[2024-01-16 12:00] VITALS: BP 150/63; PULSE 71; PULSE 73; RESP 18; TEMP 98.1; O2SAT 98
[2024-01-16] MEDS: SEVELAMER CARBONATE 800 MG TAB PO SCH (13:09)
[2024-01-16] MEDS: hydrALAZINE 25 MG TAB PO SCH (13:09)
[2024-01-16 16:00] VITALS: BP 151/65; PULSE 77; PULSE 78; RESP 18; TEMP 97.6; O2SAT 98
[2024-01-16] MEDS: LORazepam 2 MG/ML VIAL IVP PRN (18:43)
[2024-01-16 20:00] VITALS: BP 123/79; PULSE 82; PULSE 92; RESP 18; TEMP 97.8; O2SAT 95; O2SAT 96
[2024-01-16] MEDS: ACETAMINOPHEN 325 MG TAB PO PRN (20:33)
[2024-01-17] VITALS: BP 153/84; PULSE 77; PULSE 80; RESP 18; TEMP 97.8; O2SAT 95
[2024-01-17 04:00] VITALS: BP 156/70; PULSE 70; PULSE 72; RESP 18; TEMP 97.8; O2SAT 95
[2024-01-17 08:00] VITALS: BP 143/65; PULSE 72; RESP 18; TEMP 98; O2SAT 94; O2SAT 95
[2024-01-17] MEDS: carvediloL 3.125 MG TAB PO SCH (09:00)
[2024-01-17] MEDS: SERTRALINE 50 MG TAB PO SCH (09:14)
[2024-01-17 12:00] VITALS: BP 143/65; PULSE 72; PULSE 80; RESP 18; TEMP 98; O2SAT 95
[2024-01-17 12:59] LABS: BASOPHILS % (AUTO) 0.4 % (0.0-2.0); EOSINOPHILS % (AUTO) 0.5 % (0.0-4.0); HEMATOCRIT 38.6 % (36-48); HEMOGLOBIN 12.8 g/dL (12.0-16.0); LYMPHOCYTES # (AUTO) 1.1 K/uL (2.5-16.5); LYMPHOCYTES % (AUTO) 13.5 % (20.5-51.1); MEAN CORPUSCULAR HEMOGLOBIN 30 pg (27-31); MEAN CORPUSCULAR HGB CONC 33 g/dL (33-37); MEAN CORPUSCULAR VOLUME 90.1 fL (80-94); MONOCYTES # (AUTO) 0.7 K/uL (0.8-1.0); MONOCYTES % (AUTO) 8.3 % (1.7-9.3); NEUTROPHILS # (AUTO) 6.2 K/uL (1.8-7.7); NEUTROPHILS % (AUTO) 77.3 % (42.2-75.2); PLATELET COUNT (AUTO) 121 K/uL (140-450); RED BLOOD CELL COUNT(AUTO) 4.28 MIL/uL (4.20-5.40)
[2024-01-17 13:07] LABS: ANION GAP 14.5 (8-16); CALCIUM 8.7 mg/dL (8.5-10.1); CARBON DIOXIDE 25.9 mmol/L (21-32); POTASSIUM 4.4 mmol/L (3.5-5.1)
[2024-01-17 13:10] LABS: CREATININE 4.1 mg/dL (0.6-1.3)
[2024-01-17 16:00] VITALS: BP 158/69; PULSE 70; PULSE 79; RESP 18; TEMP 97.6; O2SAT 97
[2024-01-17 20:00] VITALS: BP 143/69; PULSE 70; PULSE 71; PULSE 74; RESP 16; RESP 18; TEMP 98.1; O2SAT 97
[2024-01-17] MEDS: ZOLPIDEM 5 MG TAB PO PRN (23:40)
[2024-01-18] VITALS: BP 155/67; PULSE 102; PULSE 74; RESP 18; TEMP 99.7; O2SAT 100
[2024-01-18 04:00] VITALS: BP 147/64; PULSE 70; PULSE 73; RESP 17; TEMP 97.6; O2SAT 98
[2024-01-18 06:39] LABS: BASOPHILS % (AUTO) 0.4 % (0.0-2.0); EOSINOPHILS # (AUTO) 0.1 K/uL (0-0.4); EOSINOPHILS % (AUTO) 1.1 % (0.0-4.0); HEMATOCRIT 36.3 % (36-48); HEMOGLOBIN 11.8 g/dL (12.0-16.0); LYMPHOCYTES # (AUTO) 1.5 K/uL (2.5-16.5); LYMPHOCYTES % (AUTO) 23.3 % (20.5-51.1); MEAN CORPUSCULAR HEMOGLOBIN 30 pg (27-31); MEAN CORPUSCULAR HGB CONC 33 g/dL (33-37); MEAN CORPUSCULAR VOLUME 90.9 fL (80-94); MONOCYTES # (AUTO) 0.7 K/uL (0.8-1.0); MONOCYTES % (AUTO) 10.8 % (1.7-9.3); NEUTROPHILS # (AUTO) 4.1 K/uL (1.8-7.7); NEUTROPHILS % (AUTO) 64.4 % (42.2-75.2); PLATELET COUNT (AUTO) 128 K/uL (140-450); RED BLOOD CELL COUNT(AUTO) 3.99 MIL/uL (4.20-5.40); RED CELL DISTRIBUTION WIDTH 15.7 % (11.6-13.7); WHITE BLOOD COUNT (AUTO) 6.4 K/uL (4.8-10.8)
[2024-01-18 07:43] LABS: ANION GAP 18.7 (8-16); CALCIUM 8.9 mg/dL (8.5-10.1); CARBON DIOXIDE 22.6 mmol/L (21-32); CREATININE 5.2 mg/dL (0.6-1.3); POTASSIUM 5.3 mmol/L (3.5-5.1)
[2024-01-18 08:00] VITALS: PULSE 70; PULSE 71; RESP 18; O2SAT 99
[2024-01-18 08:02] VITALS: BP 160/65; PULSE 72; RESP 18; TEMP 98.4; O2SAT 99
[2024-01-18 09:46] VITALS: BP 160/65; PULSE 72; RESP 18; TEMP 98.4
[2024-01-18] MEDS: HYDROcodone/APAP 5/325 MG 1 TAB TAB PO PRN (10:54)
== END 2024-01-18 11:30 | disposition home health service (06) | DRG 640 ==
LOC: MED 08:32 → MTU 10:54
PROVIDERS: ADMIT Family Medicine; ATTEND Family Medicine
PROC: 5A1D70Z Performance of Urinary Filtration, Intermittent, Less than 6 Hours Per Day (ICD-10-PCS; principal; 2024-01-17)
DX: E87.1 Hypo-osmolality and hyponatremia (principal); I21.A1 Myocardial infarction type 2; N17.0 Acute kidney failure with tubular necrosis; N18.6 End stage renal disease; I12.0 Hypertensive chronic kidney disease with stage 5 chronic kidney disease or end stage renal disease; K29.70 Gastritis, unspecified, without bleeding; E11.22 Type 2 diabetes mellitus with diabetic chronic kidney disease; E11.65 Type 2 diabetes mellitus with hyperglycemia; E83.39 Other disorders of phosphorus metabolism; T50.995A Adverse effect of other drugs, medicaments and biological substances, initial encounter; Z99.2 Dependence on renal dialysis; Z79.899 Other long term (current) drug therapy
CPT/HCPCS: 36415; 70450; 71045; 80048; 82948; 83735; 84100; 84484; 85025; 87081; 90935; 93005; 97116; 97163-GP; 99285; J0360; J1815; J2060; Q0092

== ENCOUNTER 2024-02-02 10:55 | Emergency (ER) | payer OTHER ==
[~2024-02-02] VITALS: Ht 149.9 cm; Wt 40.8 kg
[~2024-02-02 10:55] MED LIST changes: +HYDR-1095; +LOPE2TAB52 PO; +SERT-514 PO; +SEVE800T6
[2024-02-02 11:02] VITALS: BP 124/68; PULSE 67; RESP 22; TEMP 98.6; O2SAT 99
[2024-02-02 12:05] LABS: BASOPHILS % (AUTO) 0.6 % (0.0-2.0); EOSINOPHILS # (AUTO) 0.1 K/uL (0-0.4); EOSINOPHILS % (AUTO) 1.2 % (0.0-4.0); HEMATOCRIT 36.1 % (36-48); HEMOGLOBIN 12.1 g/dL (12.0-16.0); LYMPHOCYTES # (AUTO) 1.1 K/uL (2.5-16.5); MEAN CORPUSCULAR HEMOGLOBIN 30 pg (27-31); MEAN CORPUSCULAR HGB CONC 33 g/dL (33-37); MEAN CORPUSCULAR VOLUME 90.1 fL (80-94); MONOCYTES # (AUTO) 0.8 K/uL (0.8-1.0); MONOCYTES % (AUTO) 14.4 % (1.7-9.3); NEUTROPHILS # (AUTO) 3.4 K/uL (1.8-7.7); NEUTROPHILS % (AUTO) 62.8 % (42.2-75.2); PLATELET COUNT (AUTO) 153 K/uL (140-450); RED BLOOD CELL COUNT(AUTO) 4.01 MIL/uL (4.20-5.40); RED CELL DISTRIBUTION WIDTH 15.9 % (11.6-13.7); WHITE BLOOD COUNT (AUTO) 5.4 K/uL (4.8-10.8)
[2024-02-02 12:23] LABS: ANION GAP 17.9 (8-16); CALCIUM 8.4 mg/dL (8.5-10.1); CARBON DIOXIDE 23.5 mmol/L (21-32); POTASSIUM 4.4 mmol/L (3.5-5.1)
[2024-02-02 12:28] LABS: ALBUMIN 3.2 g/dL (3.4-5.0); BILIRUBIN,DIRECT 0.2 mg/dL (0.0-0.3); TOTAL BILIRUBIN 0.5 mg/dL (0.0-1.0); TOTAL PROTEIN, SERUM 8.3 g/dL (6.4-8.2)
[2024-02-02 12:29] LABS: CREATININE 4.1 mg/dL (0.6-1.3)
[2024-02-02 13:03] VITALS: BP 149/80; PULSE 31; RESP 16
[2024-02-02 13:10] VITALS: O2SAT 100
[2024-02-02] MEDS: ONDANSETRON 4 MG ODT PO ONE (13:18)
[2024-02-02] MEDS: LORazepam 1 MG TAB PO ONE (13:18)
[2024-02-02] MEDS ORDERED: CIPR500T4 PO (13:20)
[2024-02-02] MEDS ORDERED: LOPE-289 PO (13:20)
[2024-02-02] MEDS ORDERED: ONDA8TAB87 PO (13:20)
[2024-02-02] MEDS ORDERED: HYDR25CA1 PO (15:23)
== END 2024-02-02 15:02 | disposition home or self-care (01) ==
LOC: MED 10:55
DX: R19.7 Diarrhea, unspecified (principal); F41.9 Anxiety disorder, unspecified; R11.0 Nausea; I12.0 Hypertensive chronic kidney disease with stage 5 chronic kidney disease or end stage renal disease; N18.6 End stage renal disease; K21.9 Gastro-esophageal reflux disease without esophagitis; Z99.2 Dependence on renal dialysis; Z90.710 Acquired absence of both cervix and uterus; Z90.49 Acquired absence of other specified parts of digestive tract; Z79.899 Other long term (current) drug therapy; Z88.0 Allergy status to penicillin
CPT/HCPCS: 36415; 80048; 80076; 83690; 85025; 99283; Q0162

== ENCOUNTER 2024-03-28 08:57 | Emergency (ER) | payer OTHER ==
[~2024-03-28] VITALS: Ht 149.9 cm; Wt 40.8 kg
[~2024-03-28 08:57] MED LIST changes: +CIPR500T4 PO; +HYDR25CA1 PO; +LOPE-289 PO; +ONDA8TAB87 PO
[2024-03-28 08:58] VITALS: BP 142/73; PULSE 74; RESP 16; TEMP 97.9; O2SAT 99
[2024-03-28 09:48] LABS: BASOPHILS % (AUTO) 0.1 % (0.0-2.0); EOSINOPHILS % (AUTO) 0.6 % (0.0-4.0); HEMATOCRIT 36.4 % (36-48); HEMOGLOBIN 12.1 g/dL (12.0-16.0); LYMPHOCYTES # (AUTO) 0.7 K/uL (2.5-16.5); LYMPHOCYTES % (AUTO) 9.3 % (20.5-51.1); MEAN CORPUSCULAR HEMOGLOBIN 30 pg (27-31); MEAN CORPUSCULAR HGB CONC 33 g/dL (33-37); MEAN CORPUSCULAR VOLUME 89.7 fL (80-94); MONOCYTES # (AUTO) 0.6 K/uL (0.8-1.0); MONOCYTES % (AUTO) 7.6 % (1.7-9.3); NEUTROPHILS # (AUTO) 6.3 K/uL (1.8-7.7); NEUTROPHILS % (AUTO) 82.4 % (42.2-75.2); PLATELET COUNT (AUTO) 146 K/uL (140-450); RED BLOOD CELL COUNT(AUTO) 4.05 MIL/uL (4.20-5.40); RED CELL DISTRIBUTION WIDTH 15.3 % (11.6-13.7); WHITE BLOOD COUNT (AUTO) 7.6 K/uL (4.8-10.8)
[2024-03-28 10:06] LABS: ANION GAP 13.5 (8-16); CALCIUM 8.3 mg/dL (8.5-10.1); CARBON DIOXIDE 28.1 mmol/L (21-32); CREATININE 3.3 mg/dL (0.6-1.3); POTASSIUM 3.6 mmol/L (3.5-5.1)
[2024-03-28 10:12] LABS: ALBUMIN 2.9 g/dL (3.4-5.0); BILIRUBIN,DIRECT 0.3 mg/dL (0.0-0.3); TOTAL PROTEIN, SERUM 7.7 g/dL (6.4-8.2)
[2024-03-28] MEDS: DIPHENOXYLATE /ATROPINE 2.5 MG TAB PO SCH (10:45)
[2024-03-28] MEDS: DIPHENOXYLATE /ATROPINE 2.5 MG TAB PO ONE (10:46)
[2024-03-28] MEDS: NACL 0.9% 500 ML IV SCH (10:57)
[2024-03-28 11:13] VITALS: BP 154/69; PULSE 72; RESP 16; O2SAT 97
[2024-03-28] MEDS ORDERED: ATRO1TAB PO (11:58)
== END 2024-03-28 12:49 | disposition home or self-care (01) ==
LOC: MED 08:57
DX: E11.22 Type 2 diabetes mellitus with diabetic chronic kidney disease (principal); I12.0 Hypertensive chronic kidney disease with stage 5 chronic kidney disease or end stage renal disease; N18.6 End stage renal disease; E86.0 Dehydration; R19.7 Diarrhea, unspecified; K21.9 Gastro-esophageal reflux disease without esophagitis; Z79.899 Other long term (current) drug therapy; Z98.890 Other specified postprocedural states; Z88.0 Allergy status to penicillin
CPT/HCPCS: 36415; 80048; 80076; 83605; 85025; 87040; 93005; 99284; J7030

== ENCOUNTER 2024-03-30 08:43 | Emergency (ER) | payer OTHER ==
[~2024-03-30] VITALS: Ht 144.8 cm; Wt 37.8 kg
[2024-03-30 09:00] VITALS: BP 154/81; PULSE 71; RESP 17; TEMP 97.8; O2SAT 99
[2024-03-30] MEDS ORDERED: CETI10SG1 PO (09:32)
[2024-03-30 09:53] VITALS: BP 145/81; PULSE 77; RESP 16; TEMP 98.3; O2SAT 99
== END 2024-03-30 09:53 | disposition home or self-care (01) ==
LOC: MED 08:43
DX: H02.841 Edema of right upper eyelid (principal); E46 Unspecified protein-calorie malnutrition; F41.9 Anxiety disorder, unspecified; E11.22 Type 2 diabetes mellitus with diabetic chronic kidney disease; I12.0 Hypertensive chronic kidney disease with stage 5 chronic kidney disease or end stage renal disease; N18.6 End stage renal disease; Z99.2 Dependence on renal dialysis; K21.9 Gastro-esophageal reflux disease without esophagitis; Z79.899 Other long term (current) drug therapy; Z88.0 Allergy status to penicillin
CPT/HCPCS: 99282

== ENCOUNTER 2024-05-09 09:14 | Inpatient (IN) | payer OTHER ==
[~2024-05-09] VITALS: Ht 162.6 cm; Wt 77.1 kg
[~2024-05-09 09:14] MED LIST changes: +CETI10SG1 PO
[2024-05-09 09:17] VITALS: BP 139/74; PULSE 56; RESP 17; TEMP 97.4; O2SAT 98
[2024-05-09 10:54] LABS: BASOPHILS % (AUTO) 0.4 % (0.0-2.0); EOSINOPHILS % (AUTO) 0.2 % (0.0-4.0); HEMATOCRIT 35.7 % (36-48); HEMOGLOBIN 11.6 g/dL (12.0-16.0); LYMPHOCYTES # (AUTO) 0.4 K/uL (2.5-16.5); LYMPHOCYTES % (AUTO) 8.4 % (20.5-51.1); MEAN CORPUSCULAR HEMOGLOBIN 29 pg (27-31); MEAN CORPUSCULAR HGB CONC 33 g/dL (33-37); MEAN CORPUSCULAR VOLUME 90.7 fL (80-94); MONOCYTES # (AUTO) 0.3 K/uL (0.8-1.0); MONOCYTES % (AUTO) 6.5 % (1.7-9.3); NEUTROPHILS # (AUTO) 3.8 K/uL (1.8-7.7); NEUTROPHILS % (AUTO) 84.5 % (42.2-75.2); PLATELET COUNT (AUTO) 108 K/uL (140-450); RED BLOOD CELL COUNT(AUTO) 3.93 MIL/uL (4.20-5.40); RED CELL DISTRIBUTION WIDTH 14.6 % (11.6-13.7); WHITE BLOOD COUNT (AUTO) 4.5 K/uL (4.8-10.8)
[2024-05-09 11:03] LABS: ANION GAP 13.6 (8-16); CALCIUM 8.5 mg/dL (8.5-10.1); CREATININE 3.5 mg/dL (0.6-1.3); POTASSIUM 3.6 mmol/L (3.5-5.1)
[2024-05-09 11:18] LABS: ALANINE AMINOTRANSFERASE 164 U/L (12-78); ALBUMIN 2.6 g/dL (3.4-5.0); ALKALINE PHOSPHATASE 243 U/L (50-136); ASPARTATE AMINOTRANSFERASE 212 U/L (15-37); BILIRUBIN,DIRECT 0.2 mg/dL (0.0-0.3); CREATINE KINASE, TOTAL 72 U/L (26-192); THYROID STIMULATING HORMONE 4.21 uIU/mL (0.34-3.74); TOTAL BILIRUBIN 0.6 mg/dL (0.0-1.0); TOTAL PROTEIN, SERUM 6.9 g/dL (6.4-8.2)
[2024-05-09] MEDS ORDERED: AMLO10TA PO (16:00)
[2024-05-09] MEDS ORDERED: HYDROcodone/APAP 5/325 MG 1 TAB TAB PO PRN (16:35)
[2024-05-09] MEDS ORDERED: MORPHINE SULFATE 2 MG/ML SYR IVP PRN (16:35)
[2024-05-09] MEDS ORDERED: INSULIN LISPRO SLIDING SCALE 100 UNITS/ML VIAL SUBQ PRN (16:45)
[2024-05-09] MEDS ORDERED: hydrOXYzine PAMOATE 25 MG CAP PO PRN (16:50)
[2024-05-09] MEDS: SEVELAMER CARBONATE 800 MG TAB PO SCH (17:33)
[2024-05-09] MEDS: hydrALAZINE 25 MG TAB PO SCH (17:33)
[2024-05-09 19:00] VITALS: PULSE 62; PULSE 64; RESP 18; O2SAT 97
[2024-05-09 20:00] VITALS: BP 147/72; PULSE 64; PULSE 67; RESP 18; TEMP 97.3; O2SAT 97
[2024-05-09] MEDS ORDERED: SEVELAMER CARBONATE 800 MG TAB PO SCH (21:00)
[2024-05-09] MEDS: LOPERAMIDE 2 MG CAP PO ONE (21:59)
[2024-05-09] MEDS: metroNIDAZOLE 500 MG TAB PO SCH (22:00)
[2024-05-09] MEDS: BLOOD GLUCOSE MONITORING 1 DEV DEV FS SCH (22:00)
[2024-05-09] MEDS: LOPERAMIDE 2 MG CAP ONE (22:00)
[2024-05-10] VITALS: BP 140/65; PULSE 69; PULSE 71; RESP 18; TEMP 98; O2SAT 100
[2024-05-10] MEDS: guaiFENesin 20 MG/ML UDC PO PRN (00:49)
[2024-05-10 04:00] VITALS: BP 155/73; PULSE 60; PULSE 67; PULSE 71; RESP 18; TEMP 98.2; O2SAT 94
[2024-05-10 06:27] LABS: BASOPHILS % (AUTO) 0.4 % (0.0-2.0); EOSINOPHILS # (AUTO) 0.1 K/uL (0-0.4); EOSINOPHILS % (AUTO) 2.8 % (0.0-4.0); HEMATOCRIT 32.4 % (36-48); HEMOGLOBIN 10.6 g/dL (12.0-16.0); LYMPHOCYTES # (AUTO) 1.3 K/uL (2.5-16.5); LYMPHOCYTES % (AUTO) 25.1 % (20.5-51.1); MEAN CORPUSCULAR HEMOGLOBIN 30 pg (27-31); MEAN CORPUSCULAR HGB CONC 33 g/dL (33-37); MEAN CORPUSCULAR VOLUME 90.7 fL (80-94); MONOCYTES # (AUTO) 0.5 K/uL (0.8-1.0); MONOCYTES % (AUTO) 9.9 % (1.7-9.3); NEUTROPHILS # (AUTO) 3.1 K/uL (1.8-7.7); NEUTROPHILS % (AUTO) 61.8 % (42.2-75.2); PLATELET COUNT (AUTO) 129 K/uL (140-450); RED BLOOD CELL COUNT(AUTO) 3.58 MIL/uL (4.20-5.40); RED CELL DISTRIBUTION WIDTH 14.7 % (11.6-13.7)
[2024-05-10 06:44] LABS: ALBUMIN 2.4 g/dL (3.4-5.0); CALCIUM 8.4 mg/dL (8.5-10.1); PHOSPHORUS 3.9 mg/dL (2.5-4.9); TOTAL BILIRUBIN 0.5 mg/dL (0.0-1.0); TOTAL PROTEIN, SERUM 6.4 g/dL (6.4-8.2)
[2024-05-10 06:52] LABS: CREATININE 4.1 mg/dL (0.6-1.3)
[2024-05-10] MEDS: DEXTROSE 50% 50 ML SYR IVP PRN (07:06)
[2024-05-10 08:00] VITALS: BP 155/70; PULSE 67; PULSE 68; RESP 16; TEMP 97.8; O2SAT 99
[2024-05-10] MEDS: carvediloL 3.125 MG TAB PO SCH (08:49)
[2024-05-10] MEDS: amLODIPine 5 MG TAB PO SCH (08:49)
[2024-05-10] MEDS: ECOTRIN 81 MG TABEC PO SCH (08:50)
[2024-05-10] MEDS: SERTRALINE 50 MG TAB PO SCH (08:50)
[2024-05-10 12:11] VITALS: BP 119/57; PULSE 65; RESP 16; TEMP 97.6; O2SAT 99
[2024-05-10] MEDS: ONDANSETRON 4 MG/2 ML VIAL IVP PRN (13:05)
[2024-05-10 16:24] VITALS: BP 131/66; PULSE 66; RESP 16; TEMP 98; O2SAT 99
[2024-05-10 20:00] VITALS: BP 138/68; PULSE 63; RESP 20; TEMP 98.4; O2SAT 98
[2024-05-11 04:00] VITALS: BP 142/69; PULSE 62; RESP 19; TEMP 97.7; O2SAT 98
[2024-05-11 06:55] LABS: BASOPHILS % (AUTO) 0.3 % (0.0-2.0); CREATININE 2.8 mg/dL (0.6-1.3); EOSINOPHILS # (AUTO) 0.1 K/uL (0-0.4); EOSINOPHILS % (AUTO) 2.4 % (0.0-4.0); HEMATOCRIT 32.8 % (36-48); HEMOGLOBIN 10.8 g/dL (12.0-16.0); LYMPHOCYTES # (AUTO) 1.1 K/uL (2.5-16.5); LYMPHOCYTES % (AUTO) 24.8 % (20.5-51.1); MEAN CORPUSCULAR HEMOGLOBIN 30 pg (27-31); MEAN CORPUSCULAR HGB CONC 33 g/dL (33-37); MEAN CORPUSCULAR VOLUME 90.7 fL (80-94); MONOCYTES # (AUTO) 0.5 K/uL (0.8-1.0); MONOCYTES % (AUTO) 11.7 % (1.7-9.3); NEUTROPHILS # (AUTO) 2.8 K/uL (1.8-7.7); NEUTROPHILS % (AUTO) 60.8 % (42.2-75.2); PLATELET COUNT (AUTO) 80 K/uL (140-450); RED BLOOD CELL COUNT(AUTO) 3.62 MIL/uL (4.20-5.40); RED CELL DISTRIBUTION WIDTH 14.8 % (11.6-13.7); WHITE BLOOD COUNT (AUTO) 4.5 K/uL (4.8-10.8)
[2024-05-11 07:20] LABS: MAGNESIUM 1.7 mg/dL (1.8-2.4); PHOSPHORUS 2.6 mg/dL (2.5-4.9)
[2024-05-11 08:00] VITALS: PULSE 65; RESP 17; O2SAT 100
[2024-05-11] MEDS ORDERED: MAG SULF 2000 MG/WATER PREMIX 50 ML IV SCH ×2 (09:00)
[2024-05-11 12:00] VITALS: BP 142/69; PULSE 65; RESP 17; TEMP 97.7; O2SAT 100
[2024-05-11 20:00] VITALS: BP 121/64; PULSE 64; RESP 18; TEMP 97.4; O2SAT 98
[2024-05-11 21:00] VITALS: PULSE 64; RESP 18; O2SAT 98
[2024-05-12] MEDS: ACETAMINOPHEN 325 MG TAB PO PRN (00:13)
[2024-05-12 04:00] VITALS: BP 134/67; PULSE 66; RESP 18; TEMP 97.1; O2SAT 99
[2024-05-12 07:09] LABS: BASOPHILS % (AUTO) 0.5 % (0.0-2.0); EOSINOPHILS # (AUTO) 0.2 K/uL (0-0.4); EOSINOPHILS % (AUTO) 3.9 % (0.0-4.0); HEMATOCRIT 34.4 % (36-48); HEMOGLOBIN 11.2 g/dL (12.0-16.0); MEAN CORPUSCULAR HEMOGLOBIN 30 pg (27-31); MEAN CORPUSCULAR HGB CONC 33 g/dL (33-37); MEAN CORPUSCULAR VOLUME 91.8 fL (80-94); MONOCYTES # (AUTO) 0.5 K/uL (0.8-1.0); MONOCYTES % (AUTO) 11.2 % (1.7-9.3); NEUTROPHILS # (AUTO) 2.6 K/uL (1.8-7.7); NEUTROPHILS % (AUTO) 60.4 % (42.2-75.2); PLATELET COUNT (AUTO) 84 K/uL (140-450); RED BLOOD CELL COUNT(AUTO) 3.74 MIL/uL (4.20-5.40); RED CELL DISTRIBUTION WIDTH 15.1 % (11.6-13.7); WHITE BLOOD COUNT (AUTO) 4.3 K/uL (4.8-10.8)
[2024-05-12 07:20] LABS: CALCIUM 7.8 mg/dL (8.5-10.1); CARBON DIOXIDE 27.7 mmol/L (21-32); CREATININE 3.7 mg/dL (0.6-1.3); MAGNESIUM 2.4 mg/dL (1.8-2.4); PHOSPHORUS 3.1 mg/dL (2.5-4.9); POTASSIUM 4.7 mmol/L (3.5-5.1)
[2024-05-12 08:00] VITALS: BP 153/63; PULSE 61; RESP 18; TEMP 97.7; O2SAT 99
[2024-05-12 10:09] VITALS: TEMP 97.7
[2024-05-12] MEDS ORDERED: HUMSLIDE SUBQ (10:46)
[2024-05-12] MEDS ORDERED: METR-435 PO (10:46)
[2024-05-12] MEDS ORDERED: AMLO-3 PO (10:46)
[2024-05-12] MEDS: hydrALAZINE 25 MG TAB PO SCH (10:46)
[2024-05-12] MEDS ORDERED: HYDR-5856 PO (10:46)
[2024-05-12 16:00] VITALS: BP 142/52; PULSE 67; RESP 18; TEMP 97.8; O2SAT 95
[2024-05-12 19:30] VITALS: BP 153/69; PULSE 64; RESP 19; TEMP 98.4; O2SAT 97
[2024-05-12] MEDS ORDERED: hydrALAZINE 25 MG TAB PO SCH (21:00)
[2024-05-13] MEDS ORDERED: amLODIPine 5 MG TAB PO SCH (09:00)
== END 2024-05-12 19:47 | DRG 391 ==
LOC: MED 09:14 → MTU 16:42
PROVIDERS: ADMIT Internal Medicine; ATTEND Internal Medicine
PROC: 5A1D70Z Performance of Urinary Filtration, Intermittent, Less than 6 Hours Per Day (ICD-10-PCS; principal; 2024-05-10)
PROC: 5A1D70Z Performance of Urinary Filtration, Intermittent, Less than 6 Hours Per Day (ICD-10-PCS; 2024-05-12)
DX: A08.4 Viral intestinal infection, unspecified (principal); N18.6 End stage renal disease; I12.0 Hypertensive chronic kidney disease with stage 5 chronic kidney disease or end stage renal disease; E11.649 Type 2 diabetes mellitus with hypoglycemia without coma; E83.39 Other disorders of phosphorus metabolism; J06.9 Acute upper respiratory infection, unspecified; D69.6 Thrombocytopenia, unspecified; D63.1 Anemia in chronic kidney disease; Z99.2 Dependence on renal dialysis; Z79.899 Other long term (current) drug therapy; Z88.8 Allergy status to other drugs, medicaments and biological substances; Z88.0 Allergy status to penicillin
CPT/HCPCS: 36415; 71045; 76705; 80048; 80053; 80076; 82550; 82553; 82948; 83036; 83735; 84100; 84443; 84484; 85025; 87081; 90935; 93005; 97110; 97116; 97530; 99285; J1644; J1815; J2405; J3475; Q0092